=== PATIENT | male | born 1995 | race Caucasian/White ===

== ENCOUNTER 2023-12-07 07:50 | Emergency (ER) | payer MEDICAID, SELFPAY ==
[2023-12-07 07:51] VITALS: BP 160/100; PULSE 79; RESP 18; TEMP 36.4; O2SAT 98; BMI 26.5
--- NOTE | 2023-12-07 07:59 | EX.ED.DYSGE1 ---
HPI History of Present Illness Chief Complaint: Hypoglycemia Informant: patient and EMS Onset/Context/Timing Onset: Today Context: Sudden Onset Quality: Unresponsive Location: Generalized Worsened by: Nothing Relieved by: Dextrose Narrative Narrative: Patient presents with hypoglycemic episode that occurred today. EMS was called because the patient was unresponsive. EMS administered Narcan and check fingerstick blood sugar. EMS reported that the blood sugar was 42. EMS administered dextrose. Patient is more awake and alert at this time. Patient admits to history of diabetes and states he takes insulin for that. Patient denies any nausea or vomiting. Patient denies any fevers or chills. Patient denies any chest pain or shortness of breath. Patient denies any headaches. [facility] Medical History (Updated 12/07/23 @ 10:[address] Alfonso John DO) Diabetes mellitus Allergy/AdvReac Type Severity Reaction Status Date / Time No Known Allergies Allergy Verified 12/07/23 07:51 Surgical History no surgical history no surgical history Social History Smoking Status: Unknown if ever smoked ROS ROS ED Constitutional Constitutional ED: Denies chills or fever(s) Eyes Eyes: Reports blurry vision; Denies diplopia ENT ENT ED: Denies rhinorrhea or sore throat Cardiovascular Cardiovascular: Denies chest pain or palpitations Respiratory/Chest Respiratory/Chest: Denies cough or dyspnea Gastrointestinal Gastrointestinal: Denies nausea or vomiting Genitourinary Genitourinary ED: Denies dysuria or hematuria Musculoskeletal Musculoskeletal: Denies back pain or neck pain Integumentary Denies abscess or rash Neurologic Neurologic: Denies headache(s) or weakness Allergic/Immunologic Allergic/Immunologic ED: Denies mouth swelling or urticaria EXAM Physical Exam Const Vital Signs: 12/07/23 07:51 12/07/23 08:13 12/07/23 08:13 Temperature 97.6 F L Temperature Source Temporal Pulse Rate 79 103 H Respiratory Rate 18 20 H Respiratory Effort Normal Non-Labored Respiratory Pattern Normal Blood Pressure 160/100 H 174/93 H Blood Pressure Mean 120 120 Pulse Ox 98 98 Oxygen Delivery Method Room Air Room Air 12/07/23 09:11 12/07/23 10:36 Temperature Temperature Source Pulse Rate 103 H 98 Respiratory Rate 16 18 Respiratory Effort Respiratory Pattern Blood Pressure 146/113 H 137/100 H Blood Pressure Mean 124 112 Pulse Ox 98 98 Oxygen Delivery Method Room Air Room Air Positive well nourished and well developed General Appearance ED: well developed and NAD HEENT Reports moist mucous membranes Neck supple and no JVD Resp normal respiratory effort and clear to auscultation bilaterally Cardio regular rate and regular rhythm GI non-tender and non-distended Palpation: soft Extremity normal to inspection General Extremety ED: Negative for edema or tenderness General Extremity: Negative for edema Neuro oriented x3, CN's II-XII intact bilaterally and no sensory deficits noted Sensorium / Orientation: alert Motor Exam: strength 5/5 throughout Skin no wounds MDM MDM MDM Narrative Medical decision making narrative: Differential diagnosis includes hypoglycemia, electrolyte abnormality, and substance abuse. CBC will be obtained to assess for leukocytosis and anemia. Basic metabolic profile will be obtained to assess for hypoglycemia, electrolyte abnormality, and renal function. Lab Data Attestation: I reviewed the patient's lab results. Lab results narrative: CBC was reviewed. There is a mild leukocytosis of 15.5. The remainder is within normal limits. Basic metabolic profile was reviewed. Glucose was 210. Anion gap was normal. Potassium was low at 2.9. The remainder is within normal limits. Labs: Laboratory Results - last 24 hr 12/07/23 12/07/23 12/07/23 08:07 08:15 08:26 WBC 15.5 H RBC 5.13 Hgb 15.6 Hct 43.0 MCV 83.8 MCH 30.4 MCHC 36.3 H RDW Std Deviation 37.2 RDW Coeff of Terry 12.2 Plt Count 386 MPV 8.7 Immature Gran % (Auto) 0.500 Neut % (Auto) 80.9 H Lymph % (Auto) 11.5 L Gillespie % (Auto) 6.7 Eos % (Auto) 0.1 Baso % (Auto) 0.3 Absolute Neuts (auto) 12.6 H Absolute Lymphs (auto) 1.78 Nucleated RBC % 0 Sodium 135 L Potassium 2.9 L Chloride 102 Carbon Dioxide 24.0 Anion Gap 9 BUN 12 Creatinine 1.24 Estim Creat Clear Calc 84.40 Est GFR (MDRD) Af Amer 90 Est GFR (MDRD) Non-Af 74 BUN/Creatinine Ratio 9.7 L Glucose 210 H Calcium 9.0 POC Glucose 26 L* 114 H 12/07/23 09:25 WBC RBC Hgb Hct MCV MCH MCHC RDW Std Deviation RDW Coeff of Terry Plt Count MPV Immature Gran % (Auto) Neut % (Auto) Lymph % (Auto) Gillespie % (Auto) Eos % (Auto) Baso % (Auto) Absolute Neuts (auto) Absolute Lymphs (auto) Nucleated RBC % Sodium Potassium Chloride Carbon Dioxide Anion Gap BUN Creatinine Estim Creat Clear Calc Est GFR (MDRD) Af Amer Est GFR (MDRD) Non-Af BUN/Creatinine Ratio Glucose Calcium POC Glucose 85 Treatment and Re-Evaluation :: Patient's repeat BGT here was 26. Patient was given a dose of dextrose. Patient was given a regular diet tray. Repeat BGT was obtained and was normal at 114. Patient is feeling better and wants to go home. Patient was instructed to follow-up with his primary care physician in 5 to 7 days. Patient was instructed to continue his insulin as prescribed. Patient was instructed to eat a regular diet. Patient understood and was agreeable with the plan. All questions were answered. Discharge Plan Triage Chief Complaint: Hypoglycemia ED Provider: Alfonso John Dx/Rx/DC Orders Clinical Impression: Diabetes mellitus, Hypoglycemia Instructions: ED Diabetic Insulin Reaction Primary Care Provider: Care Physician,No Primary Referrals: Eunice Bethea [Non-Staff] - 3-5 Days Care Physician,No Primary [Primary Care Provider] - Disposition Disposition: Home, Self Care
[2023-12-07] MEDS: Dextrose 50%-Water 25 GM/50 ML DISP.SYRIN IV (08:10)
[2023-12-07 08:13] VITALS: BP 174/93; PULSE 103; RESP 20; O2SAT 98
--- NOTE | 2023-12-07 08:20 | ED.RN ---
PT HAD LOW BLOOD GLUCOSE FOR EMS. THIS RN CHECKED BLOOD SUGAR AT 0807 PT GLUCOSE WAS 26. PT WAS AWAKE AND DISORIENTED, PT TWITCHING ARMS AND LEGS UNPURPOSELY AND MOVING RESTLESSLY IN BED. DR. BARRIENTOS INFORMED IMMEDIATELY OF BLOOD SUGAR, DEXTROSE GIVEN SEE DEC. PT NOW AWAKE, STILL CONFUSED BUT IT ABLE TO NOW ANSWER MORE QUESTIONS, HE IS ABLE TO RECALL WHAT ACTIVITIES HE DID YESTERDAY THAT BROUGHT HIM TO THE AREA. REGISTRATION AT THE BEDSIDE TO GET DEMOGRAPHIC INFORMATION.
[2023-12-07 08:22] LABS: Absolute Lymphocyte Count 1.78 X10^3/uL (0.83-4.51); Absolute Neutrophil Count 12.6 X10^3/uL (2.0-7.7); Basophil# 0.04 X10^3/uL; Basophil% 0.3 % (0-1); Eosinophil# 0.01 X10^3/uL; Eosinophils% 0.1 % (0-5); Hemoglobin 15.6 g/dL (13.0-16.5); Lymphocyte # 1.78 X10^3/ul (0.83-4.51); Lymphocyte % 11.5 % (19-41); Mean Corp Hgb Conc 36.3 g/dL (32-36); Mean Corpuscular Hgb 30.4 pg (27.0-32.0); Mean Corpuscular Volume 83.8 fL (80-94); Mean Platelet Vol. 8.7 fl (6.2-12.0); Monocyte# 1.04 X10^3/uL; Monocyte% 6.7 % (0-10); NRBC Flagged by Analyzer 0 % (0-5); Neutrophil # 12.57 X10^3/uL (2.7-7.7); Neutrophil % 80.9 % (47-70); Platelet Count 386 K/mm3 (150-450); RBC Distribution Width CV 12.2 % (11.6-14.6); RBC Distribution Width SD 37.2 fl (35.1-43.9); Red Blood Count 5.13 M/mm3 (4.6-6.2); White Blood Count 15.5 K/mm3 (4.4-11.0)
[2023-12-07 08:45] LABS: Bedside Glucose 26 mg/dL (74-106)
[2023-12-07 08:45] LABS: Bedside Glucose 114 mg/dL (74-106)
[2023-12-07 09:11] VITALS: BP 146/113; PULSE 103; RESP 16; O2SAT 98
[2023-12-07 09:44] LABS: Bedside Glucose 85 mg/dL (74-106)
[2023-12-07 10:00] LABS: Anion Gap 9 (5-15); BUN 12 mg/dL (7-18); BUN/Creat Ratio 9.7 RATIO (10-20); Chloride 102 mmol/L (98-107); Creatinine, Serum 1.24 mg/dL (0.70-1.30); EST Glomerular Filtration Rate 74 mL/min (>60); Est Glom Filt Rate - Afr Amer 90 mL/min (>60); Glucose 210 mg/dL (74-106); Potassium 2.9 mmol/L (3.5-5.1); Sodium Level 135 mmol/L (136-145)
[2023-12-07] MEDS: Potassium Chloride Oral Tablet 20 MEQ 40 MEQ PO (10:27)
[2023-12-07 10:36] VITALS: BP 137/100; PULSE 98; RESP 18; O2SAT 98
--- NOTE | 2023-12-07 10:37 | ED.RN ---
pt states i want to sign myself out . notified. is to discharge pt since all results are back. pt updated. iv removed. given scrubs to wear home. girlfriend present to take pt home.
== END 2023-12-07 10:53 | disposition home or self-care (01) ==
PROVIDERS: Emergency Provider Emergency Medicine; Visit Provider Emergency Medicine
DX: E11.649 Type 2 diabetes mellitus with hypoglycemia without coma (principal); Z79.4 Long term (current) use of insulin
CPT/HCPCS: 80048; 82962; 85025; 96374; 99285; A4216